=== PATIENT | female | born 1985 | race African-American/Black ===

== ENCOUNTER 2018-12-12 12:33 | Emergency (ER) | payer OTHER ==
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
[2018-12-12] MEDS ORDERED: Ketorolac 10 MG Tab PO ONE (13:17)
[2018-12-12 13:19] LABS: CHLORIDE,CL 105 mEq/L (98-106); SODIUM,NA 139 mEq/L (136-145)
== END 2018-12-12 14:55 | disposition home or self-care (01) ==
LOC: CC.ED 12:33
DX: R10.31 Right lower quadrant pain (principal); R11.2 Nausea with vomiting, unspecified; R19.7 Diarrhea, unspecified; F17.210 Nicotine dependence, cigarettes, uncomplicated
CPT/HCPCS: 36415; 80053; 80305; 81001; 81025; 82150; 83690; 85025; 86140; 99284; A9270